=== PATIENT | male | born 1985 | race Caucasian/White ===

== ENCOUNTER 2017-08-29 14:49 | Emergency (ER) | payer BC ==
[~2017-08-29] VITALS: Ht 190.5 cm; Wt 119.9 kg
[2017-08-29 16:43] LABS: HEMATOCRIT 41.8 % (38.0-50.0); HEMOGLOBIN 14.6 G/DL (12.5-16.6); MCH 31.3 PG (29.0-34.0); MCHC 34.9 G/DL (30.0-36.0); MCV 89.7 FL (86-99); PLATELET COUNT 197 K/uL (156-360); RBC DIS.WIDTH-SD 42.5 % (39-53); RED BLOOD COUNT 4.66 M/uL (4.00-5.50); WHITE BLOOD COUNT 6.3 K/uL (4.1-10.2)
[2017-08-29 16:54] LABS: CHLORIDE 106 mEq/L (99-109); POTASSIUM 4.4 mEq/L (3.7-5.4); SODIUM 142 mEq/L (136-147)
[2017-08-29 16:55] LABS: GLUCOSE 66 mg/dL (70-99)
[2017-08-29 16:59] LABS: CREATININE 0.8 mg/dL (0.6-1.3); GFR ESTIMATE (CALCULATED) > 59 mL/min/ (58.99-99999)
[2017-08-29 17:00] LABS: UREA NITROGEN (BUN) 14 mg/dL (9-23)
[2017-08-29] MEDS ORDERED: CLEOCIN300 MG PO (17:17)
[2017-08-29] MEDS ORDERED: ULTRAM50 MG PO (17:18)
[2017-08-29] MEDS ORDERED: AUGMENTIN875 MG PO (17:34)
[2017-08-29 17:40] VITALS: BP 112/76
== END 2017-08-29 17:41 | disposition home or self-care (01) ==
LOC: RME 14:49 → EME 14:49 → RME 17:41
PROVIDERS: Physician Assistant
DX: S51.851A Open bite of right forearm, initial encounter (principal); L03.113 Cellulitis of right upper limb; W54.0XXA Bitten by dog, initial encounter; Z86.14 Personal history of Methicillin resistant Staphylococcus aureus infection; Z88.1 Allergy status to other antibiotic agents; Z88.2 Allergy status to sulfonamides; Z88.8 Allergy status to other drugs, medicaments and biological substances
CPT/HCPCS: 73090; 80048; 83605; 85027; 87070; 87075; 87077; 87205; 99281; 99284; J0696